=== PATIENT | male | born 1995 | race Caucasian/White ===

== ENCOUNTER 2024-06-29 16:05 | Emergency (ER) | payer OTHER, SELFPAY ==
[2024-06-29 16:11] VITALS: BP 132/78; PULSE 51; RESP 14; TEMP 36.6; O2SAT 100
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
[2024-06-29] MEDS: TETANUS,DIPHTHERIA,AC PERTUSSIS ADULT (0.5 ML) BOOSTRIX IM (16:55)
== END 2024-06-29 17:18 | disposition home or self-care (01) ==
PROVIDERS: Emergency Provider Nurse Practitioner Family
DX: S51.811A Laceration without foreign body of right forearm, initial encounter (principal); W26.0XXA Contact with knife, initial encounter; Z23 Encounter for immunization
CPT/HCPCS: 12001; 90471; 90715; 99212; G0463; J2003